=== PATIENT | female | born 1955 | race Caucasian/White ===

== ENCOUNTER → 2016-12-04 | Outpatient (CLI) | payer MEDICAID ==
[~2016-12-04] MED LIST: ESCI5TAB7 PO; HYDR12.58 PO; LISI-167 PO
== END | disposition home or self-care (01) ==
LOC: CFH 06:50
PROVIDERS: ATTEND Neurological Surgery
DX: M51.36 Other intervertebral disc degeneration, lumbar region (principal); M51.26 Other intervertebral disc displacement, lumbar region; M43.16 Spondylolisthesis, lumbar region; M41.86 Other forms of scoliosis, lumbar region; G89.29 Other chronic pain; M48.06 Spinal stenosis, lumbar region
CPT/HCPCS: 72110; 72148

== ENCOUNTER → 2017-10-02 | Outpatient (CLI) | payer MEDICAID | LOC: CFH 09:57 | PROVIDERS: ATTEND Nurse Practitioner Family | DX: Z12.31 Encounter for screening mammogram for malignant neoplasm of breast (principal) | CPT/HCPCS: 77067 ==

== ENCOUNTER → 2018-08-29 | Outpatient (CLI) | payer MEDICAID ==
[~2018-08-29] MED LIST changes: -HYDR12.58 PO; +HYDROCHLOROTH12.5 MG PO
== END | disposition home or self-care (01) ==
LOC: CFH 15:18
PROVIDERS: ATTEND Neurological Surgery
DX: M51.36 Other intervertebral disc degeneration, lumbar region (principal); M47.816 Spondylosis without myelopathy or radiculopathy, lumbar region; I70.0 Atherosclerosis of aorta
CPT/HCPCS: 72114; 72148

== ENCOUNTER 2021-02-03 08:54 | Day surgery (SDC) | payer OTHER ==
[~2021-02-03] VITALS: Ht 154.9 cm; Wt 68.6 kg
[2021-02-03] MEDS ORDERED: METO50TA4 PO (09:23)
[2021-02-03] MEDS ORDERED: ASPI81TA45 PO (09:23)
[2021-02-03] MEDS ORDERED: LISI40TA9 PO (09:23)
[2021-02-03 09:28] VITALS: BP 139/62
[2021-02-03] MEDS ORDERED: LIDOCAINE-MPF 1%, 5ML ONE (09:42)
[2021-02-03] MEDS ORDERED: HEPARIN 1,000 UNITS/ML, 10ML ONE (09:42)
[2021-02-03] MEDS ORDERED: VERAPAMIL 2.5 MG/ML, 2ML ONE (09:42)
[2021-02-03] MEDS ORDERED: FENTANYL PF 100 MCG/2ML ONE (09:42)
[2021-02-03] MEDS ORDERED: BIVALIRUDIN 250 MG ONE (09:42)
[2021-02-03] MEDS ORDERED: MIDAZOLAM 1 MG/ML, 5ML ONE (09:42)
[2021-02-03] MEDS ORDERED: NITROGLYCERIN 5 MG/ML, 10ML ONE (09:44)
[2021-02-03 10:21] LABS: BASOPHILS % (AUTO) 1 % (0-1); EOSINOPHILS % (AUTO) 2 % (1-7); LYMPHOCYTES % (AUTO) 41 % (22-44); MEAN CORPUSCULAR HEMOGLOBIN 31.5 pg (27.0-34.8); MEAN CORPUSCULAR HGB CONC 34.2 g/dL (32.4-35.8); MEAN PLATELET VOLUME 8.1 fL (7.4-10.4); MONOCYTES % (AUTO) 11 % (2-9); NEUTROPHILS % (AUTO) 46 % (42-75); PLATELET COUNT 265 x10^3/uL (130-400); RED CELL DISTRIBUTION WIDTH 13.4 % (9.6-15.2)
[2021-02-03 10:30] LABS: ANION GAP 5 mmol/L (5-15); CALCIUM 9.9 mg/dL (8.5-10.1); CHLORIDE 110 mmol/L (98-107); CREATININE 0.76 mg/dL (0.55-1.02)
== END 2021-02-03 12:32 | disposition home or self-care (01) ==
LOC: CACL 08:54
PROVIDERS: ATTEND Internal Medicine Cardiovascular Disease
DX: R94.39 Abnormal result of other cardiovascular function study (principal); I25.110 Atherosclerotic heart disease of native coronary artery with unstable angina pectoris; I25.84 Coronary atherosclerosis due to calcified coronary lesion; I25.83 Coronary atherosclerosis due to lipid rich plaque; I10 Essential (primary) hypertension; E78.5 Hyperlipidemia, unspecified; Z79.899 Other long term (current) drug therapy
CPT/HCPCS: 36415; 80048; 85025; 93458; 99156; C1769; C1894; J1644; J2250; J3010; Q9967; J0583